=== PATIENT | female | born 2000 | race Caucasian/White ===

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

== ENCOUNTER 2019-01-22 05:46 | Emergency (ER) | payer OTHER ==
[~2019-01-22] VITALS: Ht 160 cm; Wt 180.0 kg
[2019-01-22 05:53] VITALS: BP 130/85
[2019-01-22] MEDS ORDERED: ESCI10TA PO (06:00)
== END 2019-01-22 07:34 | disposition left against medical advice (07) ==
LOC: EMS 05:48
DX: R42 Dizziness and giddiness (principal); Z53.21 Procedure and treatment not carried out due to patient leaving prior to being seen by health care provider
CPT/HCPCS: 93005